=== PATIENT | female | born 1990 | race Caucasian/White ===

== ENCOUNTER 2019-10-03 07:40 | Emergency (ER) | payer MEDICAID ==
[~2019-10-03] VITALS: Ht 154.9 cm; Wt 55.3 kg
[2019-10-03 07:42] VITALS: BP 113/73
[2019-10-03] MEDS ORDERED: BENZ-16 PO (08:53)
[2019-10-03] MEDS ORDERED: ROBCFL PO (08:53)
== END 2019-10-03 09:05 | disposition home or self-care (01) ==
LOC: ER 07:40
DX: J06.9 Acute upper respiratory infection, unspecified (principal); G43.909 Migraine, unspecified, not intractable, without status migrainosus; Z88.2 Allergy status to sulfonamides
CPT/HCPCS: 99283

== ENCOUNTER 2020-07-22 15:24 | Emergency (ER) | payer MEDICAID ==
[~2020-07-22] VITALS: Ht 154.9 cm; Wt 52.5 kg
[2020-07-22 15:39] VITALS: BP 118/88
[2020-07-22 16:11] LABS: CLARITY,URINE CLEAR (Clear); COLOR,URINE YELLOW (Yellow); GLUCOSE, URINE NEGATIVE (Neg); KETONES,URINE NEGATIVE (Neg); LEUKOCYTE ESTERASE ,URINE NEGATIVE (Neg); NITRITES, URINE NEGATIVE (Neg); OCCULT BLOOD,URINE TRACE-LYSED (Neg); PROTEIN,URINE NEGATIVE (Neg); URINE HCG NEGATIVE (NEG); UROBILINOGEN,URINE 0.2 E.U/dL (0.2-1.0)
[2020-07-22 16:32] LABS: BASOPHILS # (AUTO) 0.1 X10'3 (0-0.2); BASOPHILS % (AUTO) 0.8 % (0-1); EOSINOPHILS # (AUTO) 0.1 X10'3 (0-0.9); EOSINOPHILS % (AUTO) 1.5 % (0-6); HEMATOCRIT 39.2 % (35.0-45.0); HEMOGLOBIN 13.3 g/dl (12.0-16.0); LYMPHOCYTES # (AUTO) 2.4 X10'3 (1.1-4.8); LYMPHOCYTES % (AUTO) 34.7 % (21-51); MEAN CORPUSCULAR HGB CONC 34.1 g/dL (33.0-36.5); MEAN CORPUSCULAR VOLUME 88.1 FL (78-98); MEAN PLATELET VOLUME 7.6 FL (7.4-10.4); MONOCYTES # (AUTO) 0.4 X10'3 (0-0.9); MONOCYTES % (AUTO) 5.4 % (2-12); NEUTROPHILS # (AUTO) 3.9 X10'3 (1.8-7.7); NEUTROPHILS % (AUTO) 57.6 % (42-75); PLATELET COUNT 294 X10'3 (140-440); RED BLOOD COUNT 4.45 X10'6 (4.20-5.60); RED CELL DISTRIBUTION WIDTH 14.8 % (11.5-14.5); WHITE BLOOD COUNT 6.8 X10'3 (4.5-11.0)
[2020-07-22 16:55] LABS: UA COLLECTION TYPE CLN CATCH MIDSTREAM
[2020-07-22 16:56] LABS: BACTERIA,URINE FEW /HPF (Neg); MUCUS STRANDS FEW /LPF (Neg); RBC,URINE 0-2 /HPF (0-2); SQUAMOUS EPITHELIAL CELL,UR FEW /LPF (FEW); WBC,URINE NONE SEEN /HPF (0-4)
[2020-07-22 16:57] LABS: ALANINE AMINOTRANSFERASE 23 U/L (12-78); ALBUMIN 3.9 G/DL (3.4-5.0); ALBUMIN/GLOBULIN RATIO 1.2 (1.1-1.5); ALKALINE PHOSPHATASE 43 IU/L (46-116); ANION GAP 11 (8-16); ASPARTATE AMINO TRANSFERASE 17 U/L (10-37); BILIRUBIN,TOTAL 0.2 MG/DL (0.1-1.0); BLOOD UREA NITROGEN 15 MG/DL (7-18); BUN/CREATININE RATIO 27.8 (6.6-38.0); CALCIUM 9.7 MG/DL (8.5-10.1); CHLORIDE 106 MMOL/L (99-107); CREATININE 0.54 MG/DL (0.40-0.90); GLUCOSE 92 MG/DL (70-104); LIPASE 115 U/L (73-393); POTASSIUM 3.5 MMOL/L (3.5-5.1); SODIUM 142 MMOL/L (135-145); TOTAL PROTEIN 7.2 G/DL (6.4-8.2); eGFR > 90 ML/MIN
== END 2020-07-22 18:33 | disposition home or self-care (01) ==
LOC: ER 15:25
DX: R10.32 Left lower quadrant pain (principal); R42 Dizziness and giddiness; G43.909 Migraine, unspecified, not intractable, without status migrainosus; Z60.2 Problems related to living alone; Z88.2 Allergy status to sulfonamides
CPT/HCPCS: 36415; 74176; 80053; 81001; 81025; 83690; 85025; 99284

== ENCOUNTER 2021-03-15 16:19 | Emergency (ER) | payer MEDICAID ==
[~2021-03-15] VITALS: Ht 154.9 cm; Wt 54.0 kg
[2021-03-15 16:39] VITALS: BP 116/70
[2021-03-15] MEDS ORDERED: CEPH250T PO (18:48)
== END 2021-03-15 18:56 | disposition home or self-care (01) ==
LOC: ER 16:20
DX: C80.1 Malignant (primary) neoplasm, unspecified (principal); G43.909 Migraine, unspecified, not intractable, without status migrainosus; M79.631 Pain in right forearm; Z60.2 Problems related to living alone; Z88.2 Allergy status to sulfonamides; Z79.2 Long term (current) use of antibiotics
CPT/HCPCS: 99283

== ENCOUNTER 2022-01-05 22:47 | Emergency (ER) | payer MEDICAID ==
[~2022-01-05] VITALS: Ht 152.4 cm; Wt 53.0 kg
[2022-01-05 22:55] VITALS: BP 102/48
[2022-01-05 23:37] LABS: BASOPHILS % (AUTO) 0.3 % (0-1); EOSINOPHILS % (AUTO) 0.2 % (0-6); HEMATOCRIT 41.4 % (35.0-45.0); HEMOGLOBIN 14.2 g/dl (12.0-16.0); LYMPHOCYTES # (AUTO) 0.5 X10'3 (1.1-4.8); LYMPHOCYTES % (AUTO) 7.6 % (21-51); MEAN CORPUSCULAR HEMOGLOBIN 29.2 PG (27.0-31.0); MEAN CORPUSCULAR HGB CONC 34.3 g/dL (33.0-36.5); MEAN CORPUSCULAR VOLUME 85.3 FL (78-98); MEAN PLATELET VOLUME 8.2 FL (7.4-10.4); MONOCYTES # (AUTO) 0.4 X10'3 (0-0.9); MONOCYTES % (AUTO) 6.6 % (2-12); NEUTROPHILS # (AUTO) 5.8 X10'3 (1.8-7.7); NEUTROPHILS % (AUTO) 85.3 % (42-75); PLATELET COUNT 227 X10'3 (140-440); RED BLOOD COUNT 4.86 X10'6 (4.20-5.60); RED CELL DISTRIBUTION WIDTH 12.7 % (11.5-14.5); WHITE BLOOD COUNT 6.8 X10'3 (4.5-11.0)
[2022-01-05 23:43] LABS: ALANINE AMINOTRANSFERASE 14 U/L (12-78); ALBUMIN 4.3 G/DL (3.4-5.0); ALBUMIN/GLOBULIN RATIO 1.3 (1.1-1.5); ALKALINE PHOSPHATASE 38 IU/L (46-116); ANION GAP 12 (8-16); ASPARTATE AMINO TRANSFERASE 16 U/L (10-37); BILIRUBIN,TOTAL 0.5 MG/DL (0.1-1.0); BLOOD UREA NITROGEN 8 MG/DL (7-18); BUN/CREATININE RATIO 9.9 (6.6-38.0); CALCIUM 9.2 MG/DL (8.5-10.1); CHLORIDE 104 MMOL/L (99-107); CREATININE 0.81 MG/DL (0.40-0.90); GLUCOSE 119 MG/DL (70-104); POTASSIUM 3.6 MMOL/L (3.5-5.1); SODIUM 138 MMOL/L (135-145); TOTAL CARBON DIOXIDE 22.5 MMOL/L (24-32); TOTAL PROTEIN 7.6 G/DL (6.4-8.2); eGFR 82 ML/MIN
[2022-01-06] MEDS ORDERED: ondansetron 4mg rapidly disintigrating tab PO ONE (00:10)
[2022-01-06] MEDS ORDERED: ONDA8TAB13 PO (01:36)
== END 2022-01-06 01:49 | disposition home or self-care (01) ==
LOC: ER 22:48
DX: J11.1 Influenza due to unidentified influenza virus with other respiratory manifestations (principal); G43.909 Migraine, unspecified, not intractable, without status migrainosus; Z88.2 Allergy status to sulfonamides; Z79.899 Other long term (current) drug therapy
CPT/HCPCS: 36415; 80053; 85025; 99283

== ENCOUNTER 2024-10-10 17:59 | Inpatient (IN) | payer MEDICAID ==
[~2024-10-10] VITALS: Ht 154.9 cm; Wt 56.0 kg
[~2024-10-10 17:59] MED LIST: ONDA-245 PO
[2024-10-10 18:33] LABS: BILIRUBIN,URINE MODERATE (Neg); CLARITY,URINE CLEAR (Clear); COLOR,URINE YELLOW (Yellow); GLUCOSE, URINE NEGATIVE (Neg); KETONES,URINE 40 mg/dl (Neg); LEUKOCYTE ESTERASE ,URINE NEGATIVE (Neg); NITRITES, URINE NEGATIVE (Neg); OCCULT BLOOD,URINE NEGATIVE (Neg); PH,URINE 7.5 (4.8-8.0); PROTEIN,URINE NEGATIVE (Neg)
[2024-10-10 18:34] LABS: BASOPHILS % (AUTO) 0.4 % (0-1); EOSINOPHILS # (AUTO) 0.1 X10'3 (0-0.9); EOSINOPHILS % (AUTO) 1.8 % (0-6); HEMOGLOBIN 13.6 g/dl (12.0-16.0); LYMPHOCYTES # (AUTO) 1.7 X10'3 (1.1-4.8); LYMPHOCYTES % (AUTO) 27.1 % (21-51); MEAN CORPUSCULAR HEMOGLOBIN 29.5 PG (27.0-31.0); MEAN CORPUSCULAR HGB CONC 33.9 g/dL (33.0-36.5); MEAN PLATELET VOLUME 8.3 FL (7.4-10.4); MONOCYTES # (AUTO) 0.3 X10'3 (0-0.9); MONOCYTES % (AUTO) 5.5 % (2-12); NEUTROPHILS # (AUTO) 4.1 X10'3 (1.8-7.7); NEUTROPHILS % (AUTO) 65.2 % (42-75); PLATELET COUNT 255 X10'3 (140-440); RED CELL DISTRIBUTION WIDTH 13.6 % (11.5-14.5); WHITE BLOOD COUNT 6.2 X10'3 (4.5-11.0)
[2024-10-10 18:36] LABS: UA COLLECTION TYPE CLN CATCH MIDSTREAM
[2024-10-10 18:45] LABS: URINE HCG NEGATIVE (NEG)
[2024-10-10 18:48] LABS: ALANINE AMINOTRANSFERASE 802 U/L (12-78); ALBUMIN 4.1 G/DL (3.4-5.0); ALBUMIN/GLOBULIN RATIO 1.3 (1.1-1.5); ALKALINE PHOSPHATASE 164 IU/L (46-116); ANION GAP 9 (8-16); ASPARTATE AMINO TRANSFERASE 515 U/L (10-37); BILIRUBIN,TOTAL 2.6 MG/DL (0.1-1.0); BLOOD UREA NITROGEN 11 MG/DL (7-18); BUN/CREATININE RATIO 26.2 (10.0-20.0); CHLORIDE 105 MMOL/L (99-107); CREATININE 0.42 MG/DL (0.40-0.90); GLUCOSE 110 MG/DL (70-104); LIPASE 53 U/L (16-77); POTASSIUM 4.1 MMOL/L (3.5-5.1); SODIUM 140 MMOL/L (135-145); TOTAL CARBON DIOXIDE 26.2 MMOL/L (24-32); TOTAL PROTEIN 7.3 G/DL (6.4-8.2); eCRCL 141 ML/MIN; eGFR > 90 ML/MIN
[2024-10-10] MEDS: ondansetron/PF 4mg/2ml inj IV ONE (21:25)
[2024-10-10] MEDS: normal saline 1000ml 1,000 ML IV ONE (21:25)
[2024-10-10] MEDS: HYDROmorphone 1 mg/ml syringe IV ONE (21:32)
[2024-10-10] MEDS: diphenhydrAMINE 50 mg/ml inj IV ONE (22:15)
[2024-10-10] MEDS ORDERED: magnesium hydroxide 30ml (MOM) UD suspension PO PRN (23:45)
[2024-10-10] MEDS ORDERED: mag hydrox/Alum hydrox/simeth 30ml oral suspension PO PRN (23:45)
[2024-10-10] MEDS ORDERED: magnesium Cl slow-release 64mg tablet PO PRN (23:45)
[2024-10-10] MEDS ORDERED: acetaminophen 325mg tablet PO PRN (23:45)
[2024-10-10] MEDS ORDERED: magnesium sulf-water 2g/50mL 50 ML IV PRN (23:45)
[2024-10-10] MEDS ORDERED: potassium Cl 40MEQ/1/2NS 520ml 520 ML IV PRN (23:45)
[2024-10-10] MEDS ORDERED: potassium Cl 20 mEq SR tablet PO PRN ×2 (23:45)
[2024-10-10] MEDS ORDERED: magnesium sulf-water 4G/100mL 100 ML IV PRN (23:45)
[2024-10-11] VITALS (7 sets, daily range): BP systolic 113–133; BP diastolic 57–75; PULSE 62–72; RESP 17–20; TEMP 97.8–98.8; O2SAT 96–100
[2024-10-11] MEDS: normal saline 1000ml 1,000 ML IV SCH (00:15)
[2024-10-11] MEDS: piperacillin/tazo 3.375gm/50ml 50 ML IV SCH (00:41)
[2024-10-11 01:14] LABS: URINE AMPHETAMINE SCREEN NEGATIVE (Neg); URINE BARBITUATE SCREEN NEGATIVE (Neg); URINE BENZODIAZEPINES SCREEN NEGATIVE (Neg); URINE CANNABINOID SCREEN POSITIVE (Neg); URINE COCAINE SCREEN NEGATIVE (Neg); URINE METHADONE SCREEN NEGATIVE (Neg); URINE OPIATE SCREEN NEGATIVE (Neg); URINE PHENCYCLIDINE SCREEN NEGATIVE (Neg)
[2024-10-11 01:18] LABS: BASOPHILS % (AUTO) 0.4 % (0-1); EOSINOPHILS # (AUTO) 0.1 X10'3 (0-0.9); EOSINOPHILS % (AUTO) 1.5 % (0-6); HEMOGLOBIN 12.6 g/dl (12.0-16.0); LYMPHOCYTES # (AUTO) 1.4 X10'3 (1.1-4.8); LYMPHOCYTES % (AUTO) 27.8 % (21-51); MEAN CORPUSCULAR HEMOGLOBIN 29.5 PG (27.0-31.0); MEAN CORPUSCULAR VOLUME 86.8 FL (78-98); MEAN PLATELET VOLUME 8.2 FL (7.4-10.4); MONOCYTES # (AUTO) 0.4 X10'3 (0-0.9); NEUTROPHILS # (AUTO) 3.3 X10'3 (1.8-7.7); NEUTROPHILS % (AUTO) 63.3 % (42-75); PLATELET COUNT 218 X10'3 (140-440); RED BLOOD COUNT 4.26 X10'6 (4.20-5.60); RED CELL DISTRIBUTION WIDTH 13.2 % (11.5-14.5); WHITE BLOOD COUNT 5.2 X10'3 (4.5-11.0)
[2024-10-11 01:38] LABS: ALANINE AMINOTRANSFERASE 689 U/L (12-78); ALBUMIN 3.5 G/DL (3.4-5.0); ALBUMIN/GLOBULIN RATIO 1.2 (1.1-1.5); ALKALINE PHOSPHATASE 148 IU/L (46-116); ANION GAP 9 (8-16); ASPARTATE AMINO TRANSFERASE 405 U/L (10-37); BILIRUBIN,TOTAL 2.6 MG/DL (0.1-1.0); BLOOD UREA NITROGEN 7 MG/DL (7-18); BUN/CREATININE RATIO 14.6 (10.0-20.0); CALCIUM 8.4 MG/DL (8.5-10.1); CHLORIDE 110 MMOL/L (99-107); CREATININE 0.48 MG/DL (0.40-0.90); GLUCOSE 99 MG/DL (70-104); MAGNESIUM 1.8 MG/DL (1.5-2.4); PHOSPHORUS 2.9 MG/DL (2.3-4.5); POTASSIUM 4.2 MMOL/L (3.5-5.1); SODIUM 142 MMOL/L (135-145); TOTAL CARBON DIOXIDE 22.7 MMOL/L (24-32); TOTAL PROTEIN 6.5 G/DL (6.4-8.2); eCRCL 123 ML/MIN; eGFR > 90 ML/MIN
[2024-10-11 01:47] LABS: ACETAMINOPHEN < 2.0 UG/ML (10-30)
[2024-10-11] MEDS: traMADol 50MG tablet PO ONE (04:55)
[2024-10-11 06:31] LABS: APTT 24 SECONDS (22-32); PROTHROMBIN TIME 10.6 SECONDS (9.0-12.0)
[2024-10-11] MEDS: K and/or MAG REPLACEMENT MC SCH (08:00)
[2024-10-11] MEDS: LORazepam 2 mg/ml vial IV ONE (09:04)
[2024-10-11] MEDS: ondansetron/PF 4mg/2ml inj IV PRN (09:11)
[2024-10-11] MEDS: traMADol 50MG tablet PO PRN (09:52)
[2024-10-11] MEDS: nicotine 21mg patch - 24 hr TD ONE (14:25)
[2024-10-11] MEDS: morphine 2 MG/ML inj. syringe IV PRN (15:31)
[2024-10-12] VITALS (18 sets, daily range): BP systolic 18–134; BP diastolic 56–84; PULSE 61–110; RESP 12–22; TEMP 97.5–98.8; O2SAT 94–100
[2024-10-12 06:22] LABS: BASOPHILS % (AUTO) 0.4 % (0-1); EOSINOPHILS # (AUTO) 0.1 X10'3 (0-0.9); EOSINOPHILS % (AUTO) 2.8 % (0-6); HEMATOCRIT 35.9 % (35.0-45.0); HEMOGLOBIN 12.1 g/dl (12.0-16.0); LYMPHOCYTES # (AUTO) 1.4 X10'3 (1.1-4.8); LYMPHOCYTES % (AUTO) 29.3 % (21-51); MEAN CORPUSCULAR HEMOGLOBIN 29.5 PG (27.0-31.0); MEAN CORPUSCULAR HGB CONC 33.7 g/dL (33.0-36.5); MEAN CORPUSCULAR VOLUME 87.5 FL (78-98); MEAN PLATELET VOLUME 8.5 FL (7.4-10.4); MONOCYTES # (AUTO) 0.4 X10'3 (0-0.9); MONOCYTES % (AUTO) 8.9 % (2-12); NEUTROPHILS # (AUTO) 2.8 X10'3 (1.8-7.7); NEUTROPHILS % (AUTO) 58.6 % (42-75); PLATELET COUNT 197 X10'3 (140-440); RED CELL DISTRIBUTION WIDTH 13.6 % (11.5-14.5); WHITE BLOOD COUNT 4.8 X10'3 (4.5-11.0)
[2024-10-12 06:30] LABS: APTT 24 SECONDS (22-32); PROTHROMBIN TIME 10.3 SECONDS (9.0-12.0)
[2024-10-12 06:46] LABS: ALANINE AMINOTRANSFERASE 449 U/L (12-78); ALBUMIN 3.2 G/DL (3.4-5.0); ALBUMIN/GLOBULIN RATIO 1.2 (1.1-1.5); ALKALINE PHOSPHATASE 141 IU/L (46-116); ANION GAP 9 (8-16); ASPARTATE AMINO TRANSFERASE 140 U/L (10-37); BILIRUBIN,TOTAL 1.7 MG/DL (0.1-1.0); BLOOD UREA NITROGEN 4 MG/DL (7-18); BUN/CREATININE RATIO 6.7 (10.0-20.0); CALCIUM 8.3 MG/DL (8.5-10.1); CHLORIDE 110 MMOL/L (99-107); GLUCOSE 93 MG/DL (70-104); MAGNESIUM 1.9 MG/DL (1.5-2.4); PHOSPHORUS 3.8 MG/DL (2.3-4.5); POTASSIUM 3.9 MMOL/L (3.5-5.1); SODIUM 143 MMOL/L (135-145); TOTAL PROTEIN 5.9 G/DL (6.4-8.2); eCRCL 99 ML/MIN; eGFR > 90 ML/MIN
[2024-10-12] MEDS: nicotine 21mg patch - 24 hr TD SCH (07:52)
[2024-10-12] MEDS: INDOCYANINE GREEN 25 MG/10 ML VIAL IV ONE (19:09)
[2024-10-12] MEDS ORDERED: LIDOcaine 1% 30ml preserv. free vial ONE (20:10)
[2024-10-12] MEDS ORDERED: BUPIVAcaine 2.5mg/ml inj 50ml vial (contains preservative) ONE (20:10)
[2024-10-12] MEDS: midazolam 1 mg/ML 2ml injection ONE (20:14)
[2024-10-12] MEDS ORDERED: labetalol 20mg/4ml (5mg/ml) syringe IV PRN (20:20)
[2024-10-12] MEDS ORDERED: fentaNYL/PF 50MCG/1 ML 2ML syringe IV PRN ×2 (20:20)
[2024-10-12] MEDS: ringers solution, lacted 1,000 ML IV SCH (20:20)
[2024-10-12] MEDS ORDERED: morphine 2 MG/ML inj. syringe IV PRN (20:20)
[2024-10-12] MEDS ORDERED: fentaNYL/PF 50MCG/1 ML 2ML syringe ONE (20:26)
[2024-10-12] MEDS ORDERED: midazolam 1 mg/ML 2ml injection ONE (20:26)
[2024-10-12] MEDS ORDERED: propofol inj 20 ML IV ONE (20:27)
[2024-10-12] MEDS ORDERED: sevoflurane 250ml liquid IH ONE (20:28)
[2024-10-12] MEDS ORDERED: ceFAZolin 1000mg inj ONE ×2 (20:45)
[2024-10-12] MEDS ORDERED: rocuronium 10mg/ml inj IV ONE (20:46)
[2024-10-12] MEDS ORDERED: dexamethasone sod phosphate 4mg/ml inj. ONE (20:46)
[2024-10-12] MEDS ORDERED: ondansetron/PF 4mg/2ml inj ONE (21:44)
[2024-10-12] MEDS ORDERED: sugammadex 200mg/2ml injection IV ONE (21:56)
[2024-10-12] MEDS ORDERED: ondansetron/PF 4mg/2ml inj IV PRN (22:20)
[2024-10-12] MEDS: morphine 4 MG/ML inj SYRINge IV PRN (22:32)
[2024-10-12] MEDS: acetaminophen 1,000mg/100ml IV 100 ML IV PRN (22:32)
[2024-10-12] MEDS: meperidine/PF 100mg/ml syringe IV PRN (22:42)
[2024-10-12] MEDS: ondansetron/PF 4mg/2ml inj IV PRN (22:47)
[2024-10-12] MEDS: oxyCODONE/APAP 5-325mg tablet PO PRN (23:53)
[2024-10-13] VITALS (10 sets, daily range): BP systolic 102–129; BP diastolic 58–72; PULSE 63–78; RESP 16–18; TEMP 97.1–98.7; O2SAT 95–100
[2024-10-13 05:21] LABS: BASOPHILS % (AUTO) 0.2 % (0-1); EOSINOPHILS % (AUTO) 0 % (0-6); LYMPHOCYTES # (AUTO) 0.6 X10'3 (1.1-4.8); LYMPHOCYTES % (AUTO) 10.6 % (21-51); MEAN CORPUSCULAR HEMOGLOBIN 29.4 PG (27.0-31.0); MEAN CORPUSCULAR HGB CONC 33.4 g/dL (33.0-36.5); MEAN CORPUSCULAR VOLUME 87.9 FL (78-98); MEAN PLATELET VOLUME 8.6 FL (7.4-10.4); MONOCYTES # (AUTO) 0.2 X10'3 (0-0.9); NEUTROPHILS # (AUTO) 4.6 X10'3 (1.8-7.7); NEUTROPHILS % (AUTO) 85.2 % (42-75); PLATELET COUNT 205 X10'3 (140-440); RED CELL DISTRIBUTION WIDTH 13.8 % (11.5-14.5); WHITE BLOOD COUNT 5.4 X10'3 (4.5-11.0)
[2024-10-13 05:42] LABS: ALANINE AMINOTRANSFERASE 355 U/L (12-78); ALKALINE PHOSPHATASE 138 IU/L (46-116); ANION GAP 11 (8-16); ASPARTATE AMINO TRANSFERASE 109 U/L (10-37); BLOOD UREA NITROGEN 4 MG/DL (7-18); BUN/CREATININE RATIO 6.9 (10.0-20.0); CALCIUM 8.3 MG/DL (8.5-10.1); CHLORIDE 107 MMOL/L (99-107); CREATININE 0.58 MG/DL (0.40-0.90); GLUCOSE 130 MG/DL (70-104); MAGNESIUM 1.6 MG/DL (1.5-2.4); PHOSPHORUS 3.9 MG/DL (2.3-4.5); SODIUM 140 MMOL/L (135-145); TOTAL CARBON DIOXIDE 22.5 MMOL/L (24-32); TOTAL PROTEIN 5.9 G/DL (6.4-8.2); eCRCL 102 ML/MIN; eGFR > 90 ML/MIN
[2024-10-13 06:01] LABS: APTT 23 SECONDS (22-32); PROTHROMBIN TIME 10.9 SECONDS (9.0-12.0)
[2024-10-13 16:06] LABS: ALANINE AMINOTRANSFERASE 330 U/L (12-78); ALBUMIN 3.1 G/DL (3.4-5.0); ALBUMIN/GLOBULIN RATIO 1.1 (1.1-1.5); ALKALINE PHOSPHATASE 135 IU/L (46-116); ANION GAP 8 (8-16); ASPARTATE AMINO TRANSFERASE 96 U/L (10-37); BILIRUBIN,TOTAL 1.1 MG/DL (0.1-1.0); BLOOD UREA NITROGEN 4 MG/DL (7-18); BUN/CREATININE RATIO 8.7 (10.0-20.0); CALCIUM 8.1 MG/DL (8.5-10.1); CHLORIDE 108 MMOL/L (99-107); CREATININE 0.46 MG/DL (0.40-0.90); GLUCOSE 96 MG/DL (70-104); POTASSIUM 3.5 MMOL/L (3.5-5.1); SODIUM 142 MMOL/L (135-145); TOTAL CARBON DIOXIDE 26.3 MMOL/L (24-32); eCRCL 129 ML/MIN; eGFR > 90 ML/MIN
[2024-10-13] MEDS ORDERED: PER5325T PO (16:16)
[2024-10-13] MEDS ORDERED: NICO-687 TD (16:16)
[2024-10-13] MEDS ORDERED: CIPR-259 PO (16:21)
[2024-10-13] MEDS ORDERED: ACET-1008 PO (17:08)
== END 2024-10-13 17:53 | disposition home or self-care (01) | DRG 263 ==
LOC: ER 18:00 → ED HOLD 23:48 → UNDOADMIN 23:48 → ED HOLD 10-11 01:49 → SUR 3N 10-11 02:32
PROVIDERS: ADMIT Internal Medicine; ATTEND Family Medicine
PROC: 0FT44ZZ Resection of Gallbladder, Percutaneous Endoscopic Approach (ICD-10-PCS; principal; 2024-10-11)
PROC: 8E0W4CZ Robotic Assisted Procedure of Trunk Region, Percutaneous Endoscopic Approach (ICD-10-PCS; 2024-10-11)
PROC: BF131ZZ Fluoroscopy of Gallbladder and Bile Ducts using Low Osmolar Contrast (ICD-10-PCS; 2024-10-11)
DX: K80.00 Calculus of gallbladder with acute cholecystitis without obstruction (principal); F12.90 Cannabis use, unspecified, uncomplicated; F17.200 Nicotine dependence, unspecified, uncomplicated; K66.0 Peritoneal adhesions (postprocedural) (postinfection); G43.909 Migraine, unspecified, not intractable, without status migrainosus; M54.6 Pain in thoracic spine; M54.9 Dorsalgia, unspecified; Z88.8 Allergy status to other drugs, medicaments and biological substances
CPT/HCPCS: 36415; 71045; 74181; 76700; 80053; 80305; 80329; 81003; 81025; 82948; 83690; 83735; 84100; 84145; 85025; 85610; 85730; 87040; 87081; 93005; 96361; 96374; 96375; 99285; A4215; A4618; A7000; G0378; J0131; J0690; J1100; J1171; J1200; J2003; J2060; J2175; J2250; J2270; J2405; J2543; J2704; J3010; J3490; J7030; J7120

== ENCOUNTER 2024-10-18 15:09 | Emergency (ER) | payer MEDICAID ==
[~2024-10-18] VITALS: Ht 154.9 cm; Wt 56.0 kg
[~2024-10-18 15:09] MED LIST changes: +ACET-1008 PO; +CIPR-259 PO; +NICO-687 TD; +PER5325T PO
[2024-10-18 15:23] VITALS: BP 115/69; PULSE 82; RESP 16; O2SAT 98
[2024-10-18 15:53] VITALS: TEMP 98.3
== END 2024-10-18 15:52 | disposition home or self-care (01) ==
LOC: ER 15:09
DX: S30.1XXA Contusion of abdominal wall, initial encounter (principal); Z88.2 Allergy status to sulfonamides; Z88.5 Allergy status to narcotic agent; X58.XXXA Exposure to other specified factors, initial encounter; Y93.89 Activity, other specified; Y92.89 Other specified places as the place of occurrence of the external cause; Y99.8 Other external cause status
CPT/HCPCS: 99281

== ENCOUNTER 2025-01-01 14:34 | Emergency (ER) | payer MEDICAID ==
[~2025-01-01] VITALS: Ht 154.9 cm; Wt 56.2 kg
[~2025-01-01 14:34] MED LIST changes: -CIPR-259 PO
[2025-01-01 14:36] VITALS: BP 128/82; PULSE 89; TEMP 98.8; O2SAT 99
[2025-01-01 16:42] VITALS: RESP 16
--- NOTE | 2025-01-01 16:43 | Physician Documentation ---
History of Present Illness Chief Complaint: Groin Pain Stated Complaint: POST OP COMPLICATIONS Time Seen by MD: 15:45 Primary Medical Doctor: chelsea wood Source: patient Mode of Arrival: POV Exam Limitations: no limitations HPI 34-year-old female with chief complaint right groin pain and swelling which she states she has had since she had a cholecystectomy done two months ago. She reports that Dr. Cochran ordered a ultrasound of her right groin but it is not scheduled until January 07 and she states she can not wait until January 07. Patient states groin swelling is only at the end of the day and states it is not visible, only palpable. Patient also states that the pain is mostly at the end of the day. She also reports pain in right lower back and right knee. No overlying redness. Medication Reconciliation Allergies: Coded Allergies: hydromorphone (Verified Allergy, Mild, ITCHING, 10/18/24) Sulfa (Sulfonamide Antibiotics) (Verified Allergy, Unknown, 10/10/24) Scheduled Nicotine 21 MG Patch* (Habitrol 21 MG Patch*), 1 PATCH TD DAILY Ondansetron 8mg ODT (Ondansetron Odt), 1 TAB PO Q8H Scheduled PRN Acetaminophen (Tylenol), 1 TAB PO Q6H PRN for mild pain 1-3, (Reported) Oxycodone Hcl/Acetaminophen 5/325 MG* (Percocet 5/325 MG*), 1 TAB PO Q8H PRN for moderate or severe pain 4-10 Past Medical History Past Medical History: Migraine Past Surgical History: no surgical history Alcohol Use: None Drug Use: none Lives with: Alone Lives In: Home Occupation: employed Review of Systems All Other Systems at this time: Reviewed and Negative Physical Exam Vital Signs: Temperature: 98.8, Source: Oral, Heart Rate: 89, Respiratory Rate: 16, BP: 128/82, Pulse Oximetry: 99, Weight: 56.200 Oxygen Flow Rate: 0 Physical Exam GENERAL: Alert, no acute distress. HEENT: NCAT, EOMI, PERRL, normal oropharynx, moist oral mucosa. NECK: Supple, trachea midline. CARDIAC: Regular rate and rhythm, no murmurs, rubs, or gallops. RESPIRATORY: Equal breath sounds, clear to auscultation bilaterally, no respiratory distress. GASTROINTESTINAL: Non distended, soft, MINIMAL TTP AT THE SCAR RIGHT GROIN, NO PALPABLE BULGE. I DO NOT APPRECIATE ANY SWELLING IN THE AREA. No guarding or rebound. MUSCULOSKELETAL: Normal range of motion, nontender, no swelling. Normal gait. NEUROLOGICAL: Awake, alert, and oriented x 3. SKIN: Warm/dry, no pallor, no rash. PSYCH: Alert and appropriate. Affect congruent with mood. Speech is clear. Good eye contact. Progress Progress Note Procedure: [facility] Study Date and Requested Time: 01/01/2025 04:13 PM History: right sided groin pain concern for hernia Comparison: US ULTRASOUND OF ABDOMEN on DOS: 10/10/24 Technique: Multiple high resolution santiago-scale images obtained of the right pelvic area with color Doppler for evaluation as needed. Findings /impression: No masses, fluid collection or edema noted over the area of interest. Subcentimeter right inguinal lymph nodes are noted. Results/Orders Results/Orders Orders - KAREN RODGERS Ultrasound Of Abdomen (01/01/25 15:54) Completed Orders - KAREN RODGERS PA Ultrasound Of Abdomen (01/01/25 15:54) Vital Signs 01/01/25 14:36 Temp 98.8 Pulse 89 Resp 16 B/P (MAP) 128/82 Pulse Ox 99 O2 Flow Rate 0 Medical Decision Making Differential Dx:Considerations: Include: AAA, -Complete, - Incomplete, -Inevitable, -Missed, -Threatened, Abruptio placentae, Angina/ND, Aortic dissection, Appendicitis, Bowel obstruction, Cholangitis, Cholelithasis, Constipation, Diverticular disease, Esophageal rupture, Esophagitis, Gastritis/PUD, Gastroenteritis, GI hemorrhage, Hernia, Hepatitis, Inflammatory BD, Ischemic bowel, Ovarian cyst/torsion, Pancreatitis, PID, Porphyria, Trauma, intraabdominal, Urinary obstruction, Urinary tract infection, Urolithiasis Departure Time of Disposition: 16:43 Disposition: 01 HOME / SELF CARE / HOMELESS Impression: Primary Impression: Pelvic pain Additional Impressions: Back pain Qualified Codes: M54.50 - Low back pain, unspecified Knee pain, right Qualified Codes: M25.561 - Pain in right knee Condition: Stable Discharge Instructions: General Discharge Instructions Additional Instructions: Since pain is worse at the end of the day when you have been on your feet all day, pain is worse with lifting, I suspect pain is related to musculoskeletal especially considering pelvic ultrasound was negative. You can f/u with Dr. Cochran about this as scheduled but I do not believe this is a surgical issue. I recommend you have your PCP refer you for physical therapy to work on core strengthening, back strengthening/flexibility and your knee pain. Departure Forms: Excuse form Work or School Excused From: Physical Activity Additional Instructions: Recommend patient not lift anything at work until cleared by primary care provider. Referrals: NO PRIMARY CARE PROVIDER (PCP) Education Educated: Patient Educated regarding: diagnosis, treatment, need for follow up Signature Scribe Signature: x Attestation: KAREN Avila January 01, 2025 16:43
--- NOTE | 2025-01-01 17:14 | RADIOLOGY REPORT ---
_ Procedure: US ULTRASOUND OF ABDOMEN [facility] Study Date and Requested Time: 01/01/2025 04:13 PM History: right sided groin pain concern for hernia Comparison: US ULTRASOUND OF ABDOMEN on DOS: 10/10/24 Technique: Multiple high resolution santiago-scale images obtained of the right pelvic area with color Do ppler for evaluation as needed. Findings /impression: No masses, fluid collection or edema noted over the area of interest. Subcentimeter right inguinal lymph nodes are noted.
== END 2025-01-01 16:51 | disposition home or self-care (01) ==
LOC: ER 14:35
DX: R10.2 Pelvic and perineal pain (principal); M54.9 Dorsalgia, unspecified; M25.561 Pain in right knee; G43.909 Migraine, unspecified, not intractable, without status migrainosus; Z88.2 Allergy status to sulfonamides; Z88.5 Allergy status to narcotic agent; Z79.899 Other long term (current) drug therapy; Z60.2 Problems related to living alone
CPT/HCPCS: 76705; 99284

== ENCOUNTER 2025-02-27 15:13 | Emergency (ER) | payer MEDICAID ==
[~2025-02-27] VITALS: Ht 152.4 cm; Wt 49.6 kg
[2025-02-27 15:19] VITALS: TEMP 98.7
--- NOTE | 2025-02-27 15:28 | Physician Documentation ---
History of Present Illness ~ Chief Complaint: Complications Stated Complaint: COMPLICATIONS Time Seen by MD: 15:35 OK to notify your PCP?: Yes Primary Medical Doctor: chelsea wood Source: patient Mode of Arrival: POV Exam Limitations: no limitations HPI 34-year-old female presents for lower abdominal pain. She denies any vaginal bleeding. She reports being 9 weeks and has not received any care yet. She has a history of having 3 miscarriages. . She denies any dysuria but has been having increased urinary frequency. Has been having similar pain since her lap silverio and hernia repair earlier this year. Medication Reconciliation Allergies: Coded Allergies: hydromorphone (Verified Allergy, Mild, ITCHING, 10/18/24) Sulfa (Sulfonamide Antibiotics) (Verified Allergy, Unknown, 10/10/24) Scheduled Nicotine 21 MG Patch* (Habitrol 21 MG Patch*), 1 PATCH TD DAILY Ondansetron 8mg ODT (Ondansetron Odt), 1 TAB PO Q8H Scheduled PRN Acetaminophen (Tylenol), 1 TAB PO Q6H PRN for mild pain 1-3, (Reported) Oxycodone Hcl/Acetaminophen 5/325 MG* (Percocet 5/325 MG*), 1 TAB PO Q8H PRN for moderate or severe pain 4-10 Past Medical History Past Medical History: Migraine Past Surgical History: no surgical history Alcohol Use: None Drug Use: none Lives with: Alone Lives In: Home Occupation: employed Review of Systems All Other Systems at this time: Reviewed and Negative Constitutional: Denies: fever Respiratory: Denies: cough, shortness of breath Cardiovascular: Denies: chest pain Gastrointestinal: Reports: abdominal pain, nausea; Denies: vomiting, diarrhea, constipated, melena, hematemesis, hematochezia, rectal bleeding Physical Exam Physical Exam Vital Signs: RN Vital Signs have been reviewed: Yes, Temperature: 98.7, Source: Temporal, Heart Rate: 82, Respiratory Rate: 16, BP: 111/76, Pulse Oximetry: 97, Weight: 49.600 Pulse Oximetry Reflects: adequate oxygenation Physical Exam General: Alert, no distress. HEENT: No injection, moist mucous membranes. Neck: Full range of motion. Respiratory: No respiratory distress, equal chest rise and fall. Chest: No accessory muscle use. Cardiovascular: Regular rate and rhythm. Gastrointestinal: Nondistended, gravid uterus. mild arti umbilical ttp. No guarding or rebound. Extremities: Normal range of motion, no deformity. Neurologic: Oriented x4. Psychiatric: Normal mood and affect. Skin: Normal color, warm and dry. Progress Results/Orders Results/Orders Orders - MARISOL MILAN MD US OB (02/27/25 15:41) Completed Orders - MARISOL MILAN MD US OB (02/27/25 15:41) Cbc/Diff (02/27/25 15:42) CMP (02/27/25 15:42) Lipase (02/27/25 15:42) Acetaminophen 325mg Tablet (Tylenol Tabl (02/27/25 17:20) Vital Signs 02/27/25 02/27/25 02/27/25 02/27/25 15:19 15:39 15:39 17:51 Temp 98.7 Pulse 82 75 75 Resp 16 15 16 18 B/P (MAP) 111/76 129/83 (98) 140/81 (100) Pulse Ox 97 98 99 O2 Flow Rate 0 0 02/27/25 19:06 Pulse 65 Resp 16 B/P (MAP) 128/82 Pulse Ox 99 Laboratory Tests Test 02/27/25 15:33 02/27/25 15:45 Urine Specimen Description Cln catch midstream Urine Color Yellow Urine Clarity Clear Urine pH 6.0 Urine Specific [place] >=1.030 Urine Protein Negative Urine Glucose (UA) Negative Urine Ketones Trace H Urine Occult Blood Trace-intact Urine Nitrite Negative Urine Bilirubin Negative Urine Urobilinogen 0.2 Urine Leukocyte Esterase Negative Urine RBC 0-2 Urine WBC 0-4 Urine Squamous Epithelial Cells Moderate Urine Bacteria Few Urine Mucus Few Urine Culture Indicated Not ind Volume Urine Centrifuged 10 ml Urine Comment White Blood Count 8.5 Red Blood Count 4.67 Hemoglobin 13.4 Hematocrit 39.0 Mean Corpuscular Volume 83.6 Mean Corpuscular Hemoglobin 28.6 Mean Corpuscular Hemoglobin Concent 34.3 Red Cell Distribution Width 13.4 Platelet Count 245 Mean Platelet Volume 7.6 Neutrophils (%) (Auto) 64.4 Lymphocytes (%) (Auto) 28.0 Monocytes (%) (Auto) 5.8 Eosinophils (%) (Auto) 1.1 Basophils (%) (Auto) 0.7 Neutrophils # (Auto) 5.4 Lymphocytes # (Auto) 2.4 Monocytes # (Auto) 0.5 Eosinophils # (Auto) 0.1 Basophils # (Auto) 0.1 CBC Comment Sodium Level 136 Potassium Level 3.6 Chloride Level 104 Carbon Dioxide Level 22.4 L Anion Gap 10 Blood Urea Nitrogen 8 Creatinine 0.32 L Estimated GFR/1.73 m2 > 90 BUN/Creatinine Ratio 25.0 H Glucose Level 86 Calcium Level 8.8 Total Bilirubin 0.5 Aspartate Amino Transf (AST/SGOT) 22 Alanine Aminotransferase (ALT/SGPT) 25 Alkaline Phosphatase 42 L Total Protein 7.6 Albumin 3.8 Globulin 3.8 Albumin/Globulin Ratio 1.0 L Lipase 29 HCG Beta Subunit 23787 Chemistry Comments Medical Decision Making Additional info obtained from: old records Findings October [address] Cochran 6:20 p.m.: Care the patient transferred to [place] from Dr. Milan. Results and treatment plan reviewed with the patient. Ultrasound shows a viable 10 week intrauterine . Patient is stable for discharge. Differential Dx:Considerations: Include: -complete, - incomplete, -threatened, Appendicitis, Ectopic , Ectopic preg.- ruptured Departure Disposition: HOME / SELF CARE / HOMELESS Impression: Primary Impression: First trimester Additional Impression Text 34 yof p/w acute on chronic abdominal pain present since her cholecystectomy and hernia repair. Now . No fever, normal vitals, labs reassuring. Exam benign. Improved with APAP. US confirming IUP at 10w2d. Unwanted . s/o night physician Dr. Zimmer pending u/s read. Additional Instructions: You have an active with gestational age 10weeks and 2 days. Your due date is 09/23/25. Your labs are reassuring as is your ultrasound. This may be related to your or to your prior hernia. However your exam is reassuring if it were from a hernia complication I would expect more significant discomfort. It is safe for you to go home. Please return if you have any worsening of your symptoms, fever, passing out. Call your OB tomorrow for prompt followup. Referrals: NO PRIMARY CARE PROVIDER (PCP) Signature Scribe Signature: na Attestation: NAOMI Mcleod Feb 27, 2025 15:28 MARISOL MILAN MD Feb 27, 2025 17:23 WHIT ZIMMER MD Feb 27, 2025 19:03
[2025-02-27 15:43] LABS: LEUKOCYTE ESTERASE ,URINE NEGATIVE (Neg); NITRITES, URINE NEGATIVE (Neg); OCCULT BLOOD,URINE TRACE-INTACT (Neg)
[2025-02-27 15:47] LABS: UA COLLECTION TYPE CLN CATCH MIDSTREAM
[2025-02-27 15:48] LABS: MUCUS STRANDS FEW /LPF (Neg); SQUAMOUS EPITHELIAL CELL,UR MODERATE /LPF (FEW)
[2025-02-27 15:56] LABS: MEAN PLATELET VOLUME 7.6 FL (7.4-10.4); RED CELL DISTRIBUTION WIDTH 13.4 % (11.5-14.5)
[2025-02-27 16:15] LABS: CREATININE 0.32 MG/DL (0.40-0.90); TOTAL CARBON DIOXIDE 22.4 MMOL/L (24-32); eCRCL 176 ML/MIN; eGFR > 90 ML/MIN
--- NOTE | 2025-02-27 18:49 | RADIOLOGY REPORT ---
LIMITED SURVEY CLINICAL HISTORY: abdominal pain COMPARISON: None TECHNIQUE: Real-time grayscale, color flow and M-mode imaging of the gravid uterus is performed. FINDINGS: The uterus measures 11.5 x 9.2 x 3.8 cm. Intrauterine gestational sac and pole noted. Mean gestational sac diameter 4.3 cm. Newald-rump length 3.4 cm. Yolk sac is also noted. Average ultrasound age 10 weeks 0 days. heart rate 170 beats per minute. Estimated due date 09/25/2025. Obscured by artifact from bowel gas, the ovaries are not clearly visualized. No free fluid identified in the cul-de-sac. IMPRESSION: Single living intrauterine gestation as above.
[2025-02-27 19:06] VITALS: BP 128/82; PULSE 65; RESP 16; O2SAT 99
== END 2025-02-27 19:08 | disposition home or self-care (01) ==
LOC: ER 15:14
DX: O26.891 Other specified pregnancy related conditions, first trimester (principal); R10.33 Periumbilical pain; G43.909 Migraine, unspecified, not intractable, without status migrainosus; Z3A.10 10 weeks gestation of pregnancy; Z88.2 Allergy status to sulfonamides; Z88.5 Allergy status to narcotic agent; Z79.899 Other long term (current) drug therapy; Z60.2 Problems related to living alone
CPT/HCPCS: 36415; 76801; 80053; 81001; 83690; 84702; 85025; 86900; 86901; 99284